=== PATIENT | female | born 1945 | race Caucasian/White ===

== ENCOUNTER 2024-05-23 16:39 | Inpatient (IN) | payer OTHER, SELFPAY ==
[2024-05-23] VITALS (14 sets, daily range): BP systolic 85–142; BP diastolic 40–65
--- NOTE | 2024-05-23 12:10 | ED.GENMED ---
History of Present Illness
General
Chief Complaint: Change in Mental Status
Time Seen by Provider: 05/23/24 11:41
History of Present Illness
History of Present Illness:
79-year-old female history of dementia, encephalitis, hypertension, hyperlipidemia, diabetes presenting with altered mental status. Per daughter at bedside, patient had his episode of vomiting last night and then was more confused than normal.
Patient's daughter states that while visiting patient this morning, patient had an episode of slurred speech with a right-sided facial droop lasting approximately 20 minutes and then spontaneously resolving. On EMS arrival, pt was neurologically
intact. Patient's daughter states that patient still appears more confused than normal. Patient denies any complaints at this time including headache, numbness, weakness, tingling, chest pain, shortness of breath, or urinary symptoms. Of note
patient's daughter states that patient is enrolled in hospice for additional resources, but will 'would like everything done'.
Past History
Past History
ED Past Medical History: HTN, Hypercholesterolemia, IDDM, Hypothyroidism and Other (Herpes encephalitis, communicating hydrocephalus, dementia)
ED Past Surgical History: Gynecological and Orthopedic
Social History
Tobacco: Former smoker
Alcohol: None
Drug: None
Personal:
Living: alone
Family History
Family History: Other (reviewed and Noncontributory)
Phy Exam
Physical Exam
Physical Exam:
General: Alert, no acute distress
Head: NCAT
Eyes: clear conjunctiva, PERRLA, EOMI.
Neck: supple
Cardiac: regular rate and rhythm, no murmur
Lungs: clear to auscultation bilaterally. No wheezes, rales, or rhonchi. Speaking full unlabored sentences. No respiratory distress.
Abdomen: soft, nondistended nontender. No rebound or guarding.
MSK: no lower extremity edema bilaterally. No deformity
Skin: warm, dry
Neuro: Alert and oriented x2 person and place. Cranial nerves II through XII grossly intact no focal deficits. No slurred speech. 5 out of 5 strength bilateral upper and lower extremities. Sensation intact. Normal finger-nose.
Course
Orders/Labs/Results
Orders:
Orders
05/23/24 11:41
Electrocardiogram (*1) Urgent
Reason for Study: Other
Other Reason for Exam: slurred speech
05/23/24 11:42
EKG- Treatment ONCE
05/23/24 12:09
CT Head W/o Iv Contrast Urgent
Comment:
Reason For Exam: slurred speech, r sided facial droop now resolved
05/23/24 12:10
CXR2 [CR Chest - 2 Views ] Urgent
Comment:
Reason For Exam: fever
05/23/24 12:13
Acetaminophen [Tylenol] 1,000 mg PO NOW STA
05/23/24 12:15
UA Reflex to Culture [Urinalysis Reflex To Culture] Urgent
Date Specimen was Collected: 05/23/24
Time Specimen was Collected: 12:14
Urine Microscopic Reflex Cult Urgent
Urine Culture Urgent
NIMCO Source: U
Specimen Description:
Date Specimen was Collected: 05/23/24
Time Specimen was Collected: 12:14
05/23/24 12:47
Basic Metabolic Panel Urgent
Complete Blood Count/With Diff Urgent
05/23/24 12:58
CefTRIAXone [Rocephin] 1,000 mg IV NOW STA
05/23/24 13:51
Lactic Acid Urgent
05/23/24 14:29
0.9% Sodium Chloride 1000 ml [Nss] 1,000 ml IV BOLUS
Abnormal Lab Results
05/23/24 05/23/24 05/23/24
12:15 12:47 13:51
WBC 22.2 H 10^3/uL
(4.8-10.8)
MPV 10.7 H fL
(7.4-10.4)
Abs Immat Gran (auto) 0.2 H 10^3/uL
(0-0.05)
Absolute Neuts (auto) 18.9 H 10^3/uL
(1.4-6.5)
Absolute Monos (auto) 1.9 H 10^3/uL
(0.1-0.6)
Immature Gran % 0.9 H %
(0-0.5)
Neutrophils % 84.5 H %
(42.2-75.2)
Lymphocytes % 5.8 L %
(20.5-51.1)
BUN 25 H mg/dl
(7-17)
Glucose 174 H mg/dl
(70-99)
Lactic Acid 2.1 H mmol/L
(0.7-2.0)
Ur Occult Blood Reflex 2+ A
(Negative)
Urine Nitrite (Reflex) Positive A
(Negative)
Urine Bacteria (Reflex) Many A
(Negative)
Urine Albumin (Reflex) 2+ A
(Neg - Trace)
05/23/24 12:47
05/23/24 12:47
Vital Signs
Initial and Last Documented VS:
Initial Vital Signs
BP
142/57
05/23/24 11:40
Last Documented Vital Signs
Temp Pulse Resp BP Pulse Ox
101.4 F H 67 23 139/60 100
05/23/24 12:04 05/23/24 12:30 05/23/24 12:30 05/23/24 12:00 05/23/24 12:30
MDM/Problems Addressed
Differential Diagnosis Includes:
TIA, UTI, ALLY, electrolyte abnormality, pneumonia
MDM/Problems Addressed:
79-year-old female history of dementia, TIAs, encephalitis, hypertension, diabetes presenting with altered mental status. Per patient's daughter, patient was slurring her words and had a right-sided facial droop lasting approximately 20 minutes and
then resolved. Patient states that patient is at baseline mental status but a little more confused than normal. On arrival patient is febrile to 101.4. Patient denies any complaints at this time. Otherwise neurologically intact with no focal
deficits. Will obtain CT head. Will obtain septic workup for fever.
UA concerning for UTI. Previous cultures sensitive to ceftriaxone. Ordered ceftriaxone. Labs reviewed, significant for WBC 22.2 with left shift, lactic acid 2.[address] head shows No acute intracranial abnormality noted as read by
radiology. CXR clear. EKG shows NSR at 67bpm with MS 158 QTc 445 no acute ischemic changes. Discussed results with patient's daughter at bedside. Suspect encephalopathy secondary to UTI. Given pt is on hospice, had lengthy discussion of goals of
care with daughter at bedside who states pt 'is on hospice for additional resources, but I want her admitted if that's what is medically indicated.' Discussed with hospitalist for admission.
*Critical Care Note
Total Time (30-74mins, 75-104mins- exclusive of procedures): Not Applicable
ED Attending Note
-
Portions of this chart may have been created with voice recognition software.� Occasional wrong word or��sound alike� substitutions may have occurred due to the inherent limitations of voice recognition software.
Discharge Plan
Departure
Patient Disposition: Admit
Date of Disposition: 05/23/24
Time of Disposition: 15:12
Presentation/result/management discussed w/ accepting MD/DO: Hospitalist
Discharge Problem:
Acute UTI
Prescriptions:
No Action
metoprolol succinate 25 MG tablet extended release 24 hr
25 mg PO DAILY
lisinopril 5 MG tablet
2.5 mg PO DAILY
donepezil 10 MG tablet
10 mg PO HS
acetaminophen 325 mg Tablet
650 mg PO Q6H PRN (Reason: mild pain/fever>100.4)
atorvastatin 10 mg Tablet
10 mg PO HS
levothyroxine 75 mcg Tablet
75 mcg PO DAILY
magnesium hydroxide [Milk of Magnesia] 400 mg/5 mL Suspension
2,400 mg PO DAILYPRN PRN (Reason: if no bm for 3 days)
bisacodyl 10 mg Suppository
10 mg MS DAILYPRN PRN (Reason: if no bm after mom)
Fleet Enema 19-7 gram/118 mL Enema
118 ml MS DAILYPRN PRN (Reason: if suppository is ineffective)
docusate sodium [Colace] 100 mg Capsule
100 mg PO DAILY
nystatin 100,000 unit/gram Powder
1 applic TOPICAL BID
Rx Instructions:
apply to breast, groin, abd folds
sitagliptin phosphate 100 mg Tablet
100 mg PO DAILY
Referrals:
Bao Salgado, DO [Family Provider] -
Interventions
Interventions:
*Risk Screen - Suicide Last Done: 05/23/24 11:48
*General Assessment Last Done: 05/23/24 11:43
*Neglect/Abuse Screening Last Done: 05/23/24 11:48
*ED COVID-19 Vaccine History Last Done: 05/23/24 11:48
ED- Neurological Assessment Last Done: 05/23/24 11:43
Discharge Date and Time
Print Language: NAMIBIAN
[2024-05-23 12:45] LABS: Urine Albumin 2+ (Neg - Trace); Urine Bilirubin Negative (Negative); Urine Character Clear (Clear); Urine Color Yellow; Urine Glucose Negative (Negative); Urine Ketone Negative (Negative); Urine Leukocyte Negative (Negative); Urine Nitrite Positive (Negative); Urine Occult Blood 2+ (Negative); Urine Specific Gravity 1.025 (<1.030); Urine Urobilinogen Negative (Neg - 1+)
[2024-05-23 12:57] LABS: Urine Bacteria Many (Negative); Urine Red Blood Cell 0-2 /HPF (0-2)
[2024-05-23 13:02] LABS: Hematocrit 43.3 % (37.0-47.0); Hemoglobin 14.7 g/dL (12.0-16.0); Mean Corp Hgb Conc. 33.9 g/dL (33.0-37.0); Mean Corpuscular Hgb 30.4 pg (27.0-31.0); Mean Corpuscular Volume 89.6 fL (81.0-99.0); Mean Platelet Volume 10.7 fL (7.4-10.4); Platelet Count 207 10^3/uL (130-400); Red Blood Cell Count 4.83 10^6/uL (4.20-5.40); Red Cell Dist. Width 13.3 % (11.5-14.5); White Blood Cell Count 22.2 10^3/uL (4.8-10.8)
[2024-05-23] MEDS: TYLENOL 1000 MG PO (13:07)
[2024-05-23] MEDS: ROCEPHIN 1000 MG IV (13:07)
[2024-05-23 14:13] LABS: Lactic Acid 2.1 mmol/L (0.7-2.0)
[2024-05-23 14:23] LABS: Blood Urea Nitrogen 25 mg/dl (7-17); Calcium 9.1 mg/dl (8.4-10.2); Carbon Dioxide 23 mmol/L (22-30); Chloride 101 mmol/L (98-107); Glucose 174 mg/dl (70-99); Sodium 136 mmol/L (135-145); eGFR > 60.00
[2024-05-23] MEDS: NSS 1000 IV ×3 (14:35→17:41)
[2024-05-23 14:54] LABS: % Basophils 0.3 % (0-2); % Immature Granulocytes 0.9 % (0-0.5); % Lymphocytes 5.8 % (20.5-51.1); % Monocytes 8.5 % (1.7-9.3); % Neutrophils 84.5 % (42.2-75.2); Absolute Basophils 0.1 10^3/uL (0-0.2); Absolute Immature Granulocytes 0.2 10^3/uL (0-0.05); Absolute Lymphocytes 1.3 10^3/uL (1.2-3.4); Absolute Monocytes 1.9 10^3/uL (0.1-0.6); Absolute Neutrophils 18.9 10^3/uL (1.4-6.5); Nucleated Red Blood Cells % 0 %
--- NOTE | 2024-05-23 15:39 | HPS.HSE ---
Family Physician
-
Family Physician: Bao Salgado, DO
Chief Complaint
-
Change in mental status
History of Present Illness
Patient is a 79 y/o female past medical history of hypertension, diabetes, hypothyroidism and dementia who presents with change in mental status. She resides at [facility]. Daughter noted during her visit this morning that patient had
intermittent speech abnormality with right facial droop which lasted about 20 minutes. Upon arrival to the emergency department patient was found to have a fever of 101.4F. Per daughter patient also had an episode of vomiting last night. Patient
is unable to provide any history due to dementia. Patient denies any complaints at the present time.
Medical History
Past Medical History
Past Medical History: Reports Other
Additional Past Medical History:
Essential Hypertension
Hyperlipidemia
Hypothyroidism
Non-Insulin Dependent Diabetes Mellitus
Dementia
Ambulatory Dysfunction and Frequent Falls
Herpes Encephalitis
Hydrocephalus
Past Surgical History: Reports Other
Additional Past Surgical History:
Bilateral Knee Replacements
Left Hip Replacement
Hysterectomy
Social History
Tobacco: Former Smoker
Alcohol: None
Living: Custodial
Family History
Family History: Not pertinent
Allergies / Home Medications
Allergies reflects when Allergies were last updated in [employer].
Home Medications with original date entered in [employer]
Allergy/Medication List:
Allergies
Allergy/AdvReac Type Severity Reaction Status Date / Time
No Known Allergies Allergy Verified 11/12/22 10:07
Home Medications
metoprolol succinate 25 mg tablet,extended release 24 hr 25 mg PO DAILY Blood pressure 04/23/19
lisinopril 5 mg tablet 2.5 mg PO DAILY Blood pressure 12/09/19
donepezil 10 mg tablet 10 mg PO HS memory/cognition 11/20/20
acetaminophen 325 mg tablet 650 mg PO Q6H PRN mild pain/fever>100.4 05/23/24
atorvastatin 10 mg tablet 10 mg PO HS High Cholesterol 05/23/24
bisacodyl 10 mg rectal suppository 10 mg PA DAILYPRN PRN if no bm after mom 05/23/24
docusate sodium 100 mg capsule (Colace) 100 mg PO DAILY Constipation 05/23/24
levothyroxine 75 mcg tablet 75 mcg PO DAILY Thyroid 05/23/24
magnesium hydroxide 400 mg/5 mL oral suspension (Milk of Magnesia) 2,400 mg PO DAILYPRN PRN if no bm for 3 days 05/23/24
nystatin 100,000 unit/gram topical powder 1 applic topical BID Skin Issues 05/23/24
sitagliptin phosphate 100 mg tablet 100 mg PO DAILY Diabetes 05/23/24
sodium phosphates 19 gram-7 gram/118 mL enema (Fleet Enema) 118 ml PA DAILYPRN PRN if suppository is ineffective 05/23/24
Review of Systems
-
Unable to obtain full review of systems at this time due to: Dementia
Physical Exam
Vital Signs
Vital Signs
Temp Pulse Resp BP Pulse Ox
101.4 F H 71 20 86/42 91
05/23/24 12:04 05/23/24 15:15 05/23/24 15:15 05/23/24 15:00 05/23/24 14:45
Physical Exam
General: Well Developed, Well Nourished and No Apparent Distress
HEENT: NormoCephalic and Anicteric
Respiratory: Other (Faint rales bilateral bases; Rhonchi anteriorly)
Cardiac: S1/S2 and Regular Rhythm
GI: Soft, Non Tender, Non Distended and Normal Bowel Sounds
Genito-urinary: Clear Urine
Musculoskeletal: No Clubbing, No Cyanosis and Other (Trace edema bilateral lower extremities)
Skin: Warm and Dry
Neuro: Awake, Alert, Oriented, No Motor Deficits and Other (No Slurred Speect)
Psych: Confused
Laboratory Results
-
05/23/24 12:47
05/23/24 12:47
Laboratory Results
Lactic Acid 2.1 mmol/L (0.7-2.0) H 05/23/24 13:51
Total Bilirubin Cancelled 05/23/24 12:47
AST Cancelled 05/23/24 12:47
ALT Cancelled 05/23/24 12:47
Alkaline Phosphatase Cancelled 05/23/24 12:47
Data Reviewed
-
Diagnostic Radiology: Report Reviewed by me
CT Scan: Report Reviewed by me
Lab Data: Labs Reviewed by me
Impression/Plan
-
Severe Sepsis, suspect pneumonia despite negative chest x-ray
-Check COVID, Influenza procalcitonin and legionella antigen
-Trend lactic acid
-Continue ceftriaxone and azithromycin
-Check ECG in AM to monitor QT with concurrent use of azithromycin and donepezil
Intermittent Facial Droop and Speech Difficulty - Suspect TME in setting of severe sepsis
-Monitor for recurrence
Essential Hypertension
-Hold meds as BP running on the low side
Hyperlipidemia
-Continue atorvastatin
Diabetes Mellitus, Type II
-Continue Januvia
-Monitor sugars and continue coverage insulin
Hypothyroidism
-Continue levothyroxine
Dementia
-Monitor for mood/behavior changes during hospitalization
-Continue donepezil
DVT proph: Lovenox
Code Status: Full Code
--- NOTE | 2024-05-23 15:52 | W.PN.UPDATE ---
Update Note
Progress Note Update
This is an addendum to H&P written by MYRNA Mauro
I saw and examined the patient.
The VOICE SYSTEMS ENGINEER's note was reviewed and I agree with the note.
Comment:
Ms. Migdalia Love is a 79 yo woman with hx dementia, HTN, HLD, IDDM, Hypothyroidism brought in for episode of confusion this morning. Per daughter, she appeared more confused than normal last night after and episode of vomiting. She continues to
not be at baseline. Patient unable to provide history 2/2 dementia.
Daughter describes waxing and waning episodes of delirium earlier - where she had some slurring of words and possible drooping of one side of mouth. When EMS came these symptoms had resolved.
Triage VS: T 101.4, P 67, RR 23, BP 139/60, SpO2 100%
On exam patient is in no acute distress, lungs with bibasilar rales/rhonchi. Abdomen benign, no LE swelling. No focal neurological deficits
LABS: WBC 22.2, Hg 14.7, PLT 207, Na 136, K+ pending, Cl 101, CO2 23, BUN 25, Cr 0.9, Glucose 174, Lactate 2.1, Calcium 9.1
UA with 6-[address]
IMPRESSION:
No acute intracranial abnormality noted.
CXR
IMPRESSION:
No acute cardiopulmonary process.
Severe Sepsis unknown source
-suspect pneumonia with negative CXR given lung exam with rales/rhonchi
-check covid and flu; check legionella Ag given association with vomiting
-trend lactate and bolus as needed
-will check procal wtih next lactate
-IV Ceftriaxone/Azithromycin
-IVF
-PT/OT
TME 2/2 above
-head CT without acute abnormality, currently no focal neurological deficits on exam
Essential HTN
-hypotensive in the ER - giving fluid boluses now
-hold RUSSET REPAIRER Lisinopril and Metoprolol
DM
Hypothyroidism
-RUSSET REPAIRER Synthroid
HLD
-RUSSET REPAIRER Synthroid
Dementia
-RUSSET REPAIRER Donepezil
DM
-hold RUSSET REPAIRER Januvia
-ISS
76 minutes spent on patient care
[2024-05-23 16:30] LABS: COVID-19 Antigen Negative (Negative)
[2024-05-23 16:32] LABS: ALT (SGPT) 14 U/L (0-35); AST (SGOT) 18 U/L (14-36); Albumin 3.3 g/dl (3.5-5.0); Alkaline Phosphatase 59 U/L (38-126); Direct Bilirubin 0.1 mg/dl (0.0-0.4); Potassium 3.9 mmol/L (3.5-5.1); Total Bilirubin 0.6 mg/dl (0.2-1.3); Total Protein 6.3 g/dl (6.3-8.2)
[2024-05-23 16:46] LABS: Lactic Acid 1.9 mmol/L (0.7-2.0)
[2024-05-23 17:09] LABS: Procalcitonin 0.31 ng/ml (0.0-0.25)
[2024-05-23 17:39] LABS: Glucose - Point of Care 143 mg/dl (70-99)
[2024-05-23] MEDS: NOVOLOG FLEXPEN-LOW RESISTANCE SC (17:39)
[2024-05-23] MEDS: ZITHROMAX INFUSION 250 IV (17:55)
--- NOTE | 2024-05-23 18:10 | PTCARENOTE ---
Pt received from ED on stretcher. Assist x3 to slide pt over from stretcher to bed. Tele #[id number] placed NSR with prolonged QT. Denies pain/discomfort. Pt with dementia and a poor historian. Oriented to room and use of call reynolds. Vital signs stable. 97%
RA Afebrile.
[2024-05-23] MEDS: LOVENOX 40 MG SC (18:32)
[2024-05-23] MEDS: LIPITOR 10 MG PO (22:13)
[2024-05-23] MEDS: DESENEX/MITRAZOL/ZEASORB 1 APPLIC TOPICAL (22:14)
[2024-05-23] MEDS: ARICEPT 10 MG PO (22:14)
[2024-05-23 22:17] LABS: Glucose - Point of Care 177 mg/dl (70-99)
[2024-05-23] MEDS: TYLENOL 650 MG PO (22:25)
[2024-05-24 03:15] VITALS: BP 148/64
[2024-05-24] MEDS: SYNTHROID 75 MCG PO (05:57)
[2024-05-24 08:20] LABS: Blood Urea Nitrogen 22 mg/dl (7-17); Calcium 8.4 mg/dl (8.4-10.2); Carbon Dioxide 22 mmol/L (22-30); Chloride 105 mmol/L (98-107); Estimated Creatinine Clearance 58 ml/min; Glucose 168 mg/dl (70-99); Potassium 3.9 mmol/L (3.5-5.1); Sodium 138 mmol/L (135-145); eGFR > 60.00
[2024-05-24 08:25] VITALS: BP 135/57
[2024-05-24] MEDS: JANUVIA 100 MG PO (08:35)
[2024-05-24] MEDS: DESENEX/MITRAZOL/ZEASORB 1 APPLIC TOPICAL ×2 (08:35→21:00)
[2024-05-24 08:37] LABS: Hemoglobin 11.5 g/dL (12.0-16.0); Mean Corp Hgb Conc. 32.9 g/dL (33.0-37.0); Mean Corpuscular Hgb 29.9 pg (27.0-31.0); Mean Corpuscular Volume 90.9 fL (81.0-99.0); Mean Platelet Volume 9.9 fL (7.4-10.4); Platelet Count 144 10^3/uL (130-400); Red Blood Cell Count 3.85 10^6/uL (4.20-5.40); Red Cell Dist. Width 13.4 % (11.5-14.5)
[2024-05-24 08:46] LABS: Glucose - Point of Care 170 mg/dl (70-99)
[2024-05-24] MEDS: NOVOLOG FLEXPEN-LOW RESISTANCE SC ×2 (08:49→17:24)
--- NOTE | 2024-05-24 09:04 | W.PN.HOSP.TC ---
Addendum entered and electronically signed by Jennifer Mar MD 05/24/24 16:07:
I saw and evaluated the patient independently. I reviewed the resident�s note and agree with findings and plan as documented by Dr. Neumann.
GENERAL: well developed, well nourished, pleasantly confused female in no apparent distress
HEENT: NC/AT--no O2 requirements
HEART: regular rate and rhythm, +S1, +S2
LUNGS : rhonchi right base
ABDOM: soft, nontender, nondistended, + bowel sounds
EXT: no cyanosis, clubbing, or edema
NEUROLOGIC: pleasantly demented
sepsis--POA (SIRS with wbc and temp, lung source)--suspect pneumonia even with negative CXR given lung exam with rales/rhonchi--WBC 22K on admission, down to 13K--cont Rocephin/z-max--covid/flu/urine legionella all negative--cont IVF--PT/OT
anemia---drop in hgb likely dilutional; continue to monitor-- no active bleeding noted
Toxic metabolic encephalopathy secondary to sepsis--head CT without acute abnormality, currently no focal neurological deficits on exam
Essential HTN--hypotensive in the ER-- s/p fluid boluses--hold Lisinopril and Metoprolol
Hypothyroidism---continue Synthroid
HLD--continue Synthroid
Dementia- cont. Donepezil
Type 2 DM--cont Januvia--SSI, check HGB A1C
Code status -- Full code
DVT proph
Original Note:
Today's Communication/Plan
-
cont. abx
Assessment / Plan
Assessment / Plan
79 y/o female past medical history of hypertension, diabetes, hypothyroidism and dementia who presents with change in mental status. She resides at [facility].
# SIRS with wbc and temp,
-suspect pneumonia with negative CXR given lung exam with rales/rhonchi
-Leukocytosis trending down
-covid and flu negative
-legionella Ag negative
-Lactic acid 1.9
-Elevated pro calcitonin
-Urine culture plan
-IV Ceftriaxone/Azithromycin
-IVF
-PT/OT
-drop in hb likely dilutional; continue to monitor
# Toxic metabolic encephalopathy secondary to sepsis
-head CT without acute abnormality, currently no focal neurological deficits on exam
#Essential HTN
-hypotensive in the ER - giving fluid boluses now
-hold COMPOSITE WORKER Lisinopril and Metoprolol
-EKG normal sinus rhythm
#Hypothyroidism
-continue Synthroid
#HLD
-continue Synthroid
#Dementia
- cont. Donepezil
#DM
-continue Januvia
-ISS
Code: Full
Anticipated Discharge: Within 24 hours
Subjective/Interval History
-
Date of Service: May 24, 2024
Interval events: Patient unaware of ongoing problem.
Objective Data
-
Labs:
Laboratory Results
05/24/24
06:45
WBC 13.0 H
Hgb 11.5 L D
Hct 35.0 L
Plt Count 144 D
Sodium 138
Potassium 3.9
Chloride 105
Carbon Dioxide 22
BUN 22 H
Creatinine 0.9
Glucose 168 H
Calcium 8.4
Vital Signs:
Vital Signs
Temp Pulse Resp BP Pulse Ox
98.7 F 67 16 135/57 95
05/24/24 08:25 05/24/24 08:25 05/24/24 08:25 05/24/24 08:25 05/24/24 08:25
I&O
05/23/24 05/24/24 05/25/24
06:59 06:59 06:59
Intake Total 240 / 240
Balance 240 / 240
Review of Systems
-
Unable to obtain full review of systems at this time due to: Dementia
History Source: Patient
Respiratory: Denies Cough or Trouble Breathing
Cardiac: Denies Chest Pain
Abdomen/GI: Denies Abdominal Pain
Genitourinary: Denies Frequency or Flank Pain
Physical Exam
-
General: Well Developed, Well Nourished and Comfortable
Respiratory: Rales and Rhonchi
Cardiac: Regular Rhythm
Skin: Warm and Dry
Neuro: Awake, Alert, No Motor Deficits and No Sensory Deficits
Psych: Calm
Data Reviewed
-
CT Scan: Report Reviewed by me, Discussed with Physician and Discussed with Patient
Labs: Labs Reviewed by me, Discussed with Physician and Discussed with Patient
[2024-05-24 11:00] VITALS: BP 124/56
[2024-05-24 11:32] LABS: Glucose - Point of Care 200 mg/dl (70-99)
[2024-05-24 11:46] LABS: Glycohemoglobin (HgbA1c) 6.3 % (4.0-5.6)
[2024-05-24] MEDS: NOVOLOG FLEXPEN-LOW RESISTANCE 2 UNITS SC (14:16)
[2024-05-24] MEDS: STERILE WATER FOR INJECTION 10 ML IV (14:16)
[2024-05-24] MEDS: ROCEPHIN 1000 MG IV (14:16)
[2024-05-24 15:00] VITALS: BP 124/61
--- NOTE | 2024-05-24 15:39 | CM ---
Patient seen bedside.
Patient with dementia, pleasantly confused.
TC to daughter Mona.
Per daughter, patient had been at [facility] for almost a year s/p femur fracture.
HX dementia.
Patient is non ambulatory, can stand pivot with assist of 1 per daughter.
Patient is total care, can feed herself.
Plan is to return to [facility] when medically stable.
IMM reviewed with daughter.
Plan: [facility]
Report# [phone]
--- NOTE | 2024-05-24 16:48 | PTCARENOTE ---
Assumed care of pt from previous nurse. pt denies pain. Pt is very sleep, appetite is poor. Pt is on tele running nsr. Pt lungs are coarse, diminished. Pt call reynolds is within reach, pt rings art. will cont to monitor.
[2024-05-24 17:00] LABS: Glucose - Point of Care 114 mg/dl (70-99)
[2024-05-24] MEDS: ZITHROMAX INFUSION 250 IV (17:25)
[2024-05-24] MEDS: LOVENOX 40 MG SC (17:25)
[2024-05-24 19:40] VITALS: BP 136/59
[2024-05-24 21:06] LABS: Glucose - Point of Care 152 mg/dl (70-99)
[2024-05-24] MEDS: LIPITOR 10 MG PO (21:28)
[2024-05-24] MEDS: ARICEPT 10 MG PO (21:28)
[2024-05-24 23:37] VITALS: BP 134/61
[2024-05-25 03:55] VITALS: BP 142/67
[2024-05-25] MEDS: SYNTHROID 75 MCG PO (06:08)
[2024-05-25 07:00] VITALS: BP 158/68
[2024-05-25 07:13] LABS: Hematocrit 35.1 % (37.0-47.0); Hemoglobin 11.7 g/dL (12.0-16.0); Mean Corp Hgb Conc. 33.3 g/dL (33.0-37.0); Mean Corpuscular Hgb 29.8 pg (27.0-31.0); Mean Corpuscular Volume 89.3 fL (81.0-99.0); Mean Platelet Volume 9.7 fL (7.4-10.4); Platelet Count 151 10^3/uL (130-400); Red Blood Cell Count 3.93 10^6/uL (4.20-5.40); Red Cell Dist. Width 13.2 % (11.5-14.5); White Blood Cell Count 13.2 10^3/uL (4.8-10.8)
[2024-05-25 08:00] LABS: Blood Urea Nitrogen 18 mg/dl (7-17); Calcium 8.5 mg/dl (8.4-10.2); Carbon Dioxide 19 mmol/L (22-30); Chloride 104 mmol/L (98-107); Estimated Creatinine Clearance 58 ml/min; Glucose 130 mg/dl (70-99); Potassium 4.1 mmol/L (3.5-5.1); Sodium 136 mmol/L (135-145); eGFR > 60.00
[2024-05-25 08:24] LABS: Glucose - Point of Care 145 mg/dl (70-99)
[2024-05-25] MEDS: NOVOLOG FLEXPEN-LOW RESISTANCE SC ×2 (08:54→17:32)
[2024-05-25] MEDS: JANUVIA 100 MG PO (08:55)
[2024-05-25] MEDS: DESENEX/MITRAZOL/ZEASORB 1 APPLIC TOPICAL ×2 (08:55→20:15)
[2024-05-25 11:00] VITALS: BP 141/64
--- NOTE | 2024-05-25 12:11 | W.PN.HOSP.TC ---
Today's Communication/Plan
-
cont PT/OT
cont speech eval
cont rocephin
Assessment / Plan
Assessment / Plan
pt is a 79 year old female
sepsis--POA (SIRS with wbc and temp, lung source)--suspect pneumonia even with negative CXR given lung exam with rales/rhonchi--WBC 22K on admission, down to 13K--cont Rocephin/z-max--covid/flu/urine legionella all negative--stop IVF--PT/OT
anemia---drop in hgb likely dilutional; continue to monitor-- no active bleeding noted
Toxic metabolic encephalopathy secondary to sepsis--head CT without acute abnormality, currently no focal neurological deficits on exam
Essential HTN--hypotensive in the ER-- s/p fluid boluses--hold Lisinopril and Metoprolol
Hypothyroidism---continue Synthroid
HLD--continue Synthroid
Dementia- cont. Donepezil
Type 2 DM--cont Januvia--SSI, check HGB A1C
Code status -- Full code
DVT proph
Anticipated Discharge: 24 - 48 hours
Subjective/Interval History
-
Date of Service: May 25, 2024
pt without c/o
Objective Data
-
Labs:
Laboratory Results
05/25/24
06:54
WBC 13.2 H
Hgb 11.7 L
Hct 35.1 L
Plt Count 151
Sodium 136
Potassium 4.1
Chloride 104
Carbon Dioxide 19 L
BUN 18 H
Creatinine 0.9
Glucose 130 H
Calcium 8.5
Vital Signs:
max temp for 24 hours
05/25/24
07:00
Temp 100.1 F
Vital Signs
Temp Pulse Resp BP Pulse Ox
100 F 76 16 141/64 96
05/25/24 11:00 05/25/24 11:00 05/25/24 11:00 05/25/24 11:00 05/25/24 11:00
I&O
05/24/24 05/25/24 05/26/24
06:59 06:59 06:59
Intake Total 240 / 240 720 / 720
Balance 240 / 240 720 / 720
Review of Systems
-
All other systems: Reviewed and negative
Physical Exam
-
General: Well Developed, Well Nourished and No Apparent Distress
HEENT: Normocephalic and Atraumatic; Negative Oxygen
Respiratory: Rhonchi (right base)
Cardiac: Regular Rhythm and S1/S2; Negative Murmur
GI: Soft, Nontender, Nondistended and Normal Bowel Sounds
Musculoskeletal: No Clubbing, No Cyanosis and No Edema
Neuro: Awake
Psych: Calm
[2024-05-25 13:23] LABS: Glucose - Point of Care 219 mg/dl (70-99)
[2024-05-25] MEDS: NOVOLOG FLEXPEN-LOW RESISTANCE 2 UNITS SC (13:26)
[2024-05-25] MEDS: ROCEPHIN 1000 MG IV (13:30)
[2024-05-25] MEDS: STERILE WATER FOR INJECTION 10 ML IV (13:31)
--- NOTE | 2024-05-25 14:50 | PTOTSP ---
speech therapy
Presentation:Patient was partially oriented and willing to participate. Patient stated that she feels as though her speech is at its baseline and denied any difficulty.
Swallowing function: WALL CRANE OPERATOR observed patient with several bites of regular consistency solids from her meal tray and several cup and straw sips of thin liquids in which she appeared to tolerate as she did not exhibit any overt clinical s/sx of
aspiration or difficulty with mastication/ manipulation. Of note, about 2 minutes after last PO trial, patient demonstrated a dry cough in the absence of PO during conversation.
Per documentation, MD is r/o pna and noted a right facial droop. Not noted during session.
Recommendations:
1) regular consistency solids and thin liquids
2) aspiration precautions
3) medications as tolerated
plan: WALL CRANE OPERATOR will continue to follow; pending hospitalization.
[2024-05-25 15:00] VITALS: BP 153/76
[2024-05-25] MEDS: TYLENOL 650 MG PO (15:44)
[2024-05-25 17:02] LABS: Glucose - Point of Care 137 mg/dl (70-99)
[2024-05-25] MEDS: ZITHROMAX INFUSION 250 IV (17:35)
[2024-05-25] MEDS: LOVENOX 40 MG SC (17:35)
[2024-05-25 19:38] VITALS: BP 149/69
[2024-05-25 21:32] LABS: Glucose - Point of Care 124 mg/dl (70-99)
[2024-05-25] MEDS: ARICEPT 10 MG PO (21:50)
[2024-05-25] MEDS: LIPITOR 10 MG PO (21:50)
[2024-05-25 23:22] VITALS: BP 155/75
[2024-05-26] VITALS (8 sets, daily range): BP systolic 123–156; BP diastolic 62–97; PULSE 78–81; O2SAT 94–95
[2024-05-26] MEDS: SYNTHROID 75 MCG PO (06:12)
[2024-05-26 06:42] LABS: Hemoglobin 11.6 g/dL (12.0-16.0); Mean Corp Hgb Conc. 33.1 g/dL (33.0-37.0); Mean Corpuscular Hgb 29.4 pg (27.0-31.0); Mean Corpuscular Volume 88.8 fL (81.0-99.0); Mean Platelet Volume 9.7 fL (7.4-10.4); Platelet Count 169 10^3/uL (130-400); Red Blood Cell Count 3.94 10^6/uL (4.20-5.40); Red Cell Dist. Width 12.9 % (11.5-14.5); White Blood Cell Count 11.3 10^3/uL (4.8-10.8)
[2024-05-26 07:41] LABS: AST (SGOT) 14 U/L (14-36); Albumin 2.7 g/dl (3.5-5.0); Alkaline Phosphatase 80 U/L (38-126); Blood Urea Nitrogen 17 mg/dl (7-17); Carbon Dioxide 22 mmol/L (22-30); Chloride 104 mmol/L (98-107); Estimated Creatinine Clearance 65 ml/min; Glucose 137 mg/dl (70-99); Magnesium 1.6 mg/dl (1.6-2.3); Potassium 3.9 mmol/L (3.5-5.1); Sodium 136 mmol/L (135-145); Total Bilirubin 0.4 mg/dl (0.2-1.3); Total Protein 5.6 g/dl (6.3-8.2); eGFR > 60.00
[2024-05-26 07:56] LABS: ALT (SGPT) 11 U/L (0-35); Calcium 8.5 mg/dl (8.4-10.2)
[2024-05-26 09:12] LABS: Glucose - Point of Care 120 mg/dl (70-99)
[2024-05-26] MEDS: JANUVIA 100 MG PO (09:53)
[2024-05-26] MEDS: NOVOLOG FLEXPEN-LOW RESISTANCE SC ×3 (09:53→17:01)
[2024-05-26] MEDS: DESENEX/MITRAZOL/ZEASORB 1 APPLIC TOPICAL ×2 (09:54→21:06)
--- NOTE | 2024-05-26 11:19 | CHAP ---
Ms. Love was in good spirits - said she's doing well, looking forward to being discharged. Emotional and spiritual support provided.
[2024-05-26 11:49] LABS: Glucose - Point of Care 178 mg/dl (70-99)
[2024-05-26] MEDS: STERILE WATER FOR INJECTION 10 ML IV (14:28)
[2024-05-26] MEDS: ROCEPHIN 1000 MG IV (14:28)
--- NOTE | 2024-05-26 15:33 | W.PN.HOSP.TC ---
Today's Communication/Plan
-
change to oral keflex--anticipate d/c tomorrow
Assessment / Plan
Assessment / Plan
pt is a 79 year old female
sepsis--POA (SIRS with wbc and temp, lung source)--suspected pneumonia even with negative CXR given lung exam with rales/rhonchi, however, urine culture positive for E. coli--WBC 22K on admission, down to 11K--cont Rocephin/z-max--change to oral
keflex--covid/flu/urine legionella all negative--stop IVF--PT/OT
anemia---drop in hgb likely dilutional; continue to monitor-- no active bleeding noted
Toxic metabolic encephalopathy secondary to sepsis--head CT without acute abnormality, currently no focal neurological deficits on exam
Essential HTN--hypotensive in the ER-- s/p fluid boluses--hold Lisinopril and Metoprolol
Hypothyroidism---continue Synthroid
HLD--continue Synthroid
Dementia- cont. Donepezil
Type 2 DM--cont Januvia--SSI, check HGB A1C
Code status -- Full code
DVT proph
Anticipated Discharge: 24 - 48 hours
Subjective/Interval History
-
Date of Service: May 26, 2024
pt without c/o--pleasantly demented
Objective Data
-
Labs:
Laboratory Results
05/26/24
06:30
WBC 11.3 H
Hgb 11.6 L
Hct 35.0 L
Plt Count 169
Sodium 136
Potassium 3.9
Chloride 104
Carbon Dioxide 22
BUN 17
Creatinine 0.8
Glucose 137 H
Calcium 8.5
Total Bilirubin 0.4
AST 14
ALT 11
Alkaline Phosphatase 80
Vital Signs:
max temp for 24 hours
05/25/24
15:00
Temp 102 F H
Vital Signs
Temp Pulse Resp BP Pulse Ox
97.5 F 76 18 146/97 95
05/26/24 11:55 05/26/24 11:55 05/26/24 11:55 05/26/24 11:55 05/26/24 11:55
I&O
05/25/24 05/26/24 05/27/24
06:59 06:59 06:59
Intake Total 720 / 720 540 / 540
Balance 720 / 720 540 / 540
Review of Systems
-
All other systems: Reviewed and negative
Physical Exam
-
General: Well Developed, Well Nourished and No Apparent Distress
HEENT: Normocephalic and Atraumatic
Respiratory: Clear to Auscultation; Negative Wheezes or Rhonchi
Cardiac: Regular Rhythm and S1/S2; Negative Murmur
GI: Soft, Nontender, Nondistended and Normal Bowel Sounds
Musculoskeletal: No Clubbing, No Cyanosis and No Edema
Neuro: Awake and Alert
[2024-05-26 17:01] LABS: Glucose - Point of Care 136 mg/dl (70-99)
[2024-05-26] MEDS: LOVENOX 40 MG SC (17:01)
[2024-05-26] MEDS: KEFLEX 500 MG PO (21:05)
[2024-05-26] MEDS: LIPITOR 10 MG PO (21:05)
[2024-05-26] MEDS: ARICEPT 10 MG PO (21:05)
[2024-05-26 21:47] LABS: Glucose - Point of Care 154 mg/dl (70-99)
[2024-05-27 03:15] VITALS: BP 140/65
[2024-05-27] MEDS: SYNTHROID 75 MCG PO (05:48)
[2024-05-27 07:15] VITALS: BP 128/75
[2024-05-27 07:32] LABS: Hematocrit 34.1 % (37.0-47.0); Hemoglobin 11.3 g/dL (12.0-16.0); Mean Corp Hgb Conc. 33.1 g/dL (33.0-37.0); Mean Corpuscular Hgb 29.7 pg (27.0-31.0); Mean Corpuscular Volume 89.5 fL (81.0-99.0); Mean Platelet Volume 9.6 fL (7.4-10.4); Platelet Count 190 10^3/uL (130-400); Red Blood Cell Count 3.81 10^6/uL (4.20-5.40); Red Cell Dist. Width 13.1 % (11.5-14.5); White Blood Cell Count 9.4 10^3/uL (4.8-10.8)
--- NOTE | 2024-05-27 08:21 | W.PN.HOSP.TC ---
Today's Communication/Plan
-
Discharged to [facility] today on oral Keflex
Assessment / Plan
Assessment / Plan
79 y/o female past medical history of hypertension, diabetes, hypothyroidism and dementia who presents with change in mental status. She resides at [facility].
#Sepsis-OA (SIRS with wbc and temp, lung source)
-suspected pneumonia even with negative CXR given lung exam with rales/rhonchi, however, urine culture positive for E. coli--WBC 22K on admission, down to 9.4K today
-Initially Rocephin/z-max--change to oral keflex on 05/26; complete a 10 day course
-covid/flu/urine legionella all negative
-PT/OT
#Anemia---drop in hgb likely dilutional; continue to monitor
-no active bleeding noted
#Toxic metabolic encephalopathy secondary to sepsis
-head CT without acute abnormality, currently no focal neurological deficits on exam
#Essential HTN
-hypotensive in the ER-- s/p fluid boluses
-hold Lisinopril and Metoprolol
#Hypothyroidism
-continue Synthroid
#HLD
-continue to atorvastatin
#Dementia
-cont. Donepezil
#Type 2 DM
-cont Januvia
-SSI, check
-HGB A1C 6.3
Code status -- Full code
DVT proph
Anticipated Discharge: Today
Subjective/Interval History
-
Date of Service: May 27, 2024
Interval events: No new complaints
Objective Data
-
Labs:
Laboratory Results
05/27/24
07:06
WBC 9.4
Hgb 11.3 L
Hct 34.1 L
Plt Count 190
Sodium Pending
Potassium Pending
Chloride Pending
Carbon Dioxide Pending
BUN Pending
Creatinine Pending
Glucose Pending
Calcium Pending
Vital Signs:
Vital Signs
Temp Pulse Resp BP Pulse Ox
98.8 F 76 16 140/65 94
05/27/24 03:15 05/27/24 03:15 05/27/24 03:15 05/27/24 03:15 05/27/24 03:15
I&O
05/26/24 05/27/24 05/28/24
06:59 06:59 06:59
Intake Total 540 / 540 760 / 760
Balance 540 / 540 760 / 760
Review of Systems
-
All other systems: Reviewed and negative
Physical Exam
-
General: Well Developed, Well Nourished and No Apparent Distress
HEENT: Normocephalic and Atraumatic
Respiratory: Clear to Auscultation; Negative Wheezes or Rhonchi
Cardiac: Regular Rhythm and S1/S2; Negative Murmur
GI: Soft, Nontender, Nondistended and Normal Bowel Sounds
Musculoskeletal: No Clubbing, No Cyanosis and No Edema
Neuro: Awake and Alert
Psych: Calm
Data Reviewed
-
Labs: Labs Reviewed by me, Discussed with Physician and Discussed with Patient
[2024-05-27 08:22] VITALS: BP 128/75
[2024-05-27 08:31] LABS: Blood Urea Nitrogen 18 mg/dl (7-17); Calcium 8.8 mg/dl (8.4-10.2); Carbon Dioxide 24 mmol/L (22-30); Chloride 104 mmol/L (98-107); Estimated Creatinine Clearance 65 ml/min; Glucose 124 mg/dl (70-99); Magnesium 1.9 mg/dl (1.6-2.3); Potassium 4.1 mmol/L (3.5-5.1); Sodium 139 mmol/L (135-145); eGFR > 60.00
[2024-05-27] MEDS: JANUVIA 100 MG PO (08:46)
[2024-05-27] MEDS: DESENEX/MITRAZOL/ZEASORB 1 APPLIC TOPICAL (08:46)
[2024-05-27] MEDS: KEFLEX 500 MG PO (08:46)
[2024-05-27] MEDS: NOVOLOG FLEXPEN-LOW RESISTANCE SC ×2 (08:49→13:24)
[2024-05-27 08:50] LABS: Glucose - Point of Care 125 mg/dl (70-99)
--- NOTE | 2024-05-27 11:44 | CM ---
Addendum entered by FAITH Barnes 05/27/24 12:28:
Reviewed IMM with with patient and her sister who was at bedside. Patient was able to sign.
Original Note:
Reviewed chart, spoke with RN who stated that patient may be discharged today. Placed a call to Admissions at [facility], Mady Abarca who stated that if patient is stable to return today # For Report is [phone] and fax# [phone]. No auth
will be needed per admissions as patient is at her baseline (reviewed functional status).
Will complete medical necessity and transfer sheet for her potential return today.
Plan: Case management will continue to follow and assist with discharge planning. Back to [facility] upon medical clearance.
--- NOTE | 2024-05-27 11:48 | W.DCSUMMARY ---
Documented by User: Arnulfo Neumann MD, Resident 05/27/24 13:11
Discharge Summary
Discharge Data
Date of Admission: 05/23/24
Date of Discharge: 05/27/24
-
Pending Results: No
Hospital Course
Discharging Physician : Arnulfo Neumann MD ; Abiel Yan DO
Disposition : SNF; [facility]
Primary care physician : Bao Salgado
Principal Discharge diagnosis : Sepsis, anemia, toxic metabolic encephalopathy secondary to sepsis
Chronic Discharge diagnosis :essential hypertension, hypothyroidism, hyperlipidemia, dementia, type 2 diabetes mellitus.
Hospital Course : 79 y/o female past medical history of hypertension, diabetes, hypothyroidism and dementia who presents with change in mental status. She resides at [facility]. Suspected pneumonia even with negative CXR given lung
exam with rales/rhonchi, however, urine culture positive for E. coli--WBC 22K on admission, down to 9.4K today. Initially she was on Rocephin/z-max--change to oral keflex on 05/26; recommended to complete a 10 day course. covid/flu/urine legionella
all negative. She also had a drop in hemoglobin likely dilutional; no active bleeding noted. She had no focal neurological deficits on exam. She had hypertension in the ER she received fluid boluses and her blood pressure medication was put on
hold for the time being and resumed on discharge. Her A1c was 6.3. She has been discharged today in the medical stable position to go to her previous facility.
Important imaging findings :
HEAD CT
IMPRESSION:
No acute intracranial abnormality noted.
Chest x-ray:
IMPRESSION:
No acute cardiopulmonary process.
Discharge Plan
-
Patient Disposition: [facility]/SNF
Discharge Diagnosis/Procedures: Sepsis, anemia, toxic metabolic encephalopathy secondary to sepsis, essential hypertension, hypothyroidism, hyperlipidemia, dementia, type 2 diabetes mellitus.
Condition: Fair
Diet: Diabetic, Carb Controlled
Activity: With assistance and As tolerated
Driving Restrictions: As prior to admission
Bathing Restrictions: None
Other Services: PT and OT
Referrals:
Bao Salgado, DO [Family Provider] - in less than 1 week
Additional Discharge Medication Instructions: Take cephalexin 500 mg 1 capsule by mouth twice daily for 9 more days to complete a total of 10-day course.
Prescriptions:
New
cephalexin 500 mg Capsule
500 mg PO BID Qty: 0 0RF
Rx Instructions:
Take 1 capsule by mouth twice daily for 9 days(2 doses in hosp)
Continued
metoprolol succinate 25 MG tablet extended release 24 hr
25 mg PO DAILY
lisinopril 5 MG tablet
2.5 mg PO DAILY
donepezil 10 MG tablet
10 mg PO HS
acetaminophen 325 mg Tablet
650 mg PO Q6H PRN (Reason: mild pain/fever>100.4)
atorvastatin 10 mg Tablet
10 mg PO HS
levothyroxine 75 mcg Tablet
75 mcg PO DAILY
magnesium hydroxide [Milk of Magnesia] 400 mg/5 mL Suspension
2,400 mg PO DAILYPRN PRN (Reason: if no bm for 3 days)
bisacodyl 10 mg Suppository
10 mg WI DAILYPRN PRN (Reason: if no bm after mom)
Fleet Enema 19-7 gram/118 mL Enema
118 ml WI DAILYPRN PRN (Reason: if suppository is ineffective)
docusate sodium [Colace] 100 mg Capsule
100 mg PO DAILY
nystatin 100,000 unit/gram Powder
1 applic TOPICAL BID
Rx Instructions:
apply to breast, groin, abd folds
sitagliptin phosphate 100 mg Tablet
100 mg PO DAILY
Discharge Orders:
Discharge Patient (As Directed); Ordered 05/27/24
Ordered By: Arunlfo Neumann
Discharge Date and Time
Print Language: MOLDOVAN

Documented by User: Abiel Yan DO 05/27/24 13:27
Discharge Summary
Discharge Data
Date of Admission: 05/23/24
Date of Discharge: 05/27/24
Discharge Plan
-
Patient Disposition: [facility]/SNF
Discharge Diagnosis/Procedures: Sepsis, anemia, toxic metabolic encephalopathy secondary to sepsis, essential hypertension, hypothyroidism, hyperlipidemia, dementia, type 2 diabetes mellitus.
Condition: Fair
Diet: Diabetic, Carb Controlled
Activity: With assistance and As tolerated
Driving Restrictions: As prior to admission
Bathing Restrictions: None
Other Services: PT and OT
Referrals:
Bao Salgado DO [Family Provider] - in less than 1 week
Additional Discharge Medication Instructions: Take cephalexin 500 mg 1 capsule by mouth twice daily for 9 more days to complete a total of 10-day course.
Prescriptions:
New
cephalexin 500 mg Capsule
500 mg PO BID Qty: 0 0RF
Rx Instructions:
Take 1 capsule by mouth twice daily for 9 days(2 doses in hosp)
Continued
metoprolol succinate 25 MG tablet extended release 24 hr
25 mg PO DAILY
lisinopril 5 MG tablet
2.5 mg PO DAILY
donepezil 10 MG tablet
10 mg PO HS
acetaminophen 325 mg Tablet
650 mg PO Q6H PRN (Reason: mild pain/fever>100.4)
atorvastatin 10 mg Tablet
10 mg PO HS
levothyroxine 75 mcg Tablet
75 mcg PO DAILY
magnesium hydroxide [Milk of Magnesia] 400 mg/5 mL Suspension
2,400 mg PO DAILYPRN PRN (Reason: if no bm for 3 days)
bisacodyl 10 mg Suppository
10 mg WI DAILYPRN PRN (Reason: if no bm after mom)
Fleet Enema 19-7 gram/118 mL Enema
118 ml WI DAILYPRN PRN (Reason: if suppository is ineffective)
docusate sodium [Colace] 100 mg Capsule
100 mg PO DAILY
nystatin 100,000 unit/gram Powder
1 applic TOPICAL BID
Rx Instructions:
apply to breast, groin, abd folds
sitagliptin phosphate 100 mg Tablet
100 mg PO DAILY
Discharge Orders:
Discharge Patient (As Directed); Ordered 05/27/24
Ordered By: Arnulfo Neumann
Discharge Date and Time
Print Language: MOLDOVAN
[2024-05-27 11:49] VITALS: BP 101/67
[2024-05-27 13:14] LABS: Glucose - Point of Care 135 mg/dl (70-99)
== END 2024-05-27 13:43 | DRG 871 ==
LOC: 3 WEST ACU 16:39
PROVIDERS: Internal Medicine; Physician Assistant Medical; ADMITTING PHYSICIAN Student in an Organized Health Care Education/Training Program; ATTENDING PHYSICIAN Internal Medicine; EMERGENCY PHYSICIAN Emergency Medicine; FAMILY PHYSICIAN Internal Medicine
DX: A41.9 Sepsis, unspecified organism (principal); G92.8 Other toxic encephalopathy; J18.9 Pneumonia, unspecified organism; N39.0 Urinary tract infection, site not specified; R65.20 Severe sepsis without septic shock; E78.00 Pure hypercholesterolemia, unspecified; I10 Essential (primary) hypertension; E11.9 Type 2 diabetes mellitus without complications; E03.9 Hypothyroidism, unspecified; D64.9 Anemia, unspecified; R29.6 Repeated falls; B96.20 Unspecified Escherichia coli [E. coli] as the cause of diseases classified elsewhere; R29.810 Facial weakness; R47.81 Slurred speech; F03.90 Unspecified dementia, unspecified severity, without behavioral disturbance, psychotic disturbance, mood disturbance, and anxiety; Z96.653 Presence of artificial knee joint, bilateral; Z96.642 Presence of left artificial hip joint; Z79.890 Hormone replacement therapy; Z87.891 Personal history of nicotine dependence; Z86.61 Personal history of infections of the central nervous system; Z11.52 Encounter for screening for COVID-19
CPT/HCPCS: 70450; 71046; 80048; 80053; 80076; 81003; 81015; 82962; 83036; 83605; 83735; 84132; 84145; 85025; 85027; 87077; 87086; 87186; 87449; 87502; 87811; 92610; 93005; 96361; 96374; 97162; 97166; 99285

== ENCOUNTER → 2025-05-28 07:26 | Outpatient (REF) | payer MEDICARE, OTHER, SELFPAY ==
[2025-05-28 08:19] LABS: Hematocrit 36.5 % (37.0-47.0); Hemoglobin 12.3 g/dL (12.0-16.0); Mean Corp Hgb Conc. 33.7 g/dL (33.0-37.0); Mean Corpuscular Volume 87.7 fL (81.0-99.0); Nucleated Red Blood Cells % 0 %; Platelet Count 179 10^3/uL (130-400); Red Cell Dist. Width 13.2 % (11.5-14.5)
[2025-05-28 08:52] LABS: ALT (SGPT) 11 U/L (0-35); AST (SGOT) 16 U/L (14-36); Albumin 3.4 g/dl (3.5-5.0); Alkaline Phosphatase 66 U/L (38-126); Blood Urea Nitrogen 26 mg/dl (7-17); Calcium 9.1 mg/dl (8.4-10.2); Carbon Dioxide 24 mmol/L (22-30); Chloride 108 mmol/L (98-107); Glucose 88 mg/dl (70-99); HDL Cholesterol 34 mg/dl; LDL Cholesterol, Calculated 81 mg/dl; Potassium 4.3 mmol/L (3.5-5.1); Sodium 138 mmol/L (135-145); Total Protein 6.3 g/dl (6.3-8.2); Very Low Density Lipoprotein 27 mg/dl (0-30); eGFR 46.33
[2025-05-28 09:17] LABS: TSH 3.43 uIU/ml (0.47-4.68)
[2025-05-28 09:46] LABS: Glycohemoglobin (HgbA1c) 5.8 % (4.0-5.9)
== END ==
LOC: OLABN 07:26
PROVIDERS: ATTENDING PHYSICIAN Student in an Organized Health Care Education/Training Program
DX: E03.9 Hypothyroidism, unspecified (principal); I10 Essential (primary) hypertension; E11.9 Type 2 diabetes mellitus without complications; E78.5 Hyperlipidemia, unspecified
CPT/HCPCS: 36415; 80053; 80061; 83036; 84439; 84443; 85025